=== PATIENT | female | born 1980 | race Caucasian/White ===

== ENCOUNTER 2017-01-31 08:07 | Emergency (ER) | payer BC ==
[2017-01-31 08:52] LABS: Hematocrit 37 % (35-47); Mean Corpuscular HGB Conc 33 g/dl (31-36); Mean Corpuscular Hemoglobin 25 pg (27-31); Mean Corpuscular Volume 77 fL (80-97); Mean Platelet Volume 8 um3 (7.4-10.4); Red Blood Count 4.74 10^6/ul (4.0-5.4); Red Cell Distribution Width 19 % (10.5-15); White Blood Count 11.5 10^3/ul (3.5-10.8)
[2017-01-31 08:58] LABS: Add Diff/Slide Review? Slide Review Added; Comments Flag Yes
[2017-01-31 09:04] LABS: ALT 12 U/L (7-52); AST 16 U/L (13-39); Albumin 4.4 g/dL (3.2-5.2); Alkaline Phosphatase 67 U/L (34-104); Anion Gap 5 mmol/L (2-11); BUN/Creatinine Ratio 11.4 (8-20); Blood Urea Nitrogen 8 mg/dL (6-24); C Reactive Protein 6.01 mg/L (< 5.00); CO2 Carbon Dioxide 24 mmol/L (22-32); Calcium 9.3 mg/dL (8.6-10.3); Chloride 106 mmol/L (101-111); EGFR African American 120.4 (>60); EGFR Non-African American 93.6 (>60); Globulin 2.9 g/dL (2-4); Glucose 97 mg/dL (70-100); Lipase 40 U/L (11.0-82.0); Potassium 3.7 mmol/L (3.5-5.0); Sodium 135 mmol/L (133-145); Total Protein 7.3 g/dL (6.4-8.9)
[2017-01-31 09:44] LABS: Urine Bacteria 1+ (Absent); Urine Bilirubin Negative (Negative); Urine Glucose Negative (Negative); Urine Nitrite Negative (Negative)
[2017-01-31] MEDS ORDERED: Iohexol 300* (CONTRAST) 10 ML SDV IV ONE (10:43)
--- NOTE | 2017-01-31 11:17 | RAD ---
INDICATION: Right lower quadrant abdominal pain. COMPARISON: Comparison is made with a prior pelvic ultrasound from June 08, 2015. TECHNIQUE: A CT scan of the abdomen and pelvis was performed with intravenous and oral contrast following intravenous injection of 121 ml of Omnipaque 300 nonionic contrast. Contiguous axial sections were obtained from the lung bases through the symphysis pubis. Images were reconstructed in the coronal and sagittal planes. FINDINGS: The lung bases are clear. No pleural effusion is present. The liver and spleen are normal in size. The liver is decreased in attenuation consistent with fatty infiltration. No significant focal hepatic abnormality is seen. No calcified gallstones are noted. The pancreas appears to be within normal limits. The kidneys and adrenal glands are normal in size. No hydronephrosis is seen. There is a small subcentimeter cyst present in the midportion of the left kidney. The aorta is normal in caliber and demonstrates homogeneous contrast opacification. No significant enlarged retroperitoneal lymph nodes are seen. The stomach, small and large bowel appear nondistended. The appendix is within normal limits. There is no evidence for diverticulitis or colitis. There is a small periumbilical hernia containing fat. The uterus is anteverted and normal in size. There is a small amount of free intraperitoneal fluid in the pelvis in the cul-de-sac region. No free intraperitoneal air is seen. No significant focal osseous abnormality is seen. IMPRESSION: SMALL AMOUNT OF FREE INTRAPERITONEAL FLUID IN THE PELVIS, OTHERWISE UNREMARKABLE STUDY.
[2017-01-31 12:23] VITALS: BP 126/66
--- NOTE | 2017-01-31 12:24 | RAD ---
Indication: RIGHT lower quadrant pain for approximate 6 hours. Comparison: January 31, 2017 CT. June 08, 2015 pelvic ultrasound. Technique: Transvaginal pelvic ultrasound. Report: 8.4 x 4.7 x 5.7 cm anteverted uterus with 11 mm endometrium. Nabothian cysts at the cervix. Small to moderate volume of grossly simple appearing free fluid in the cul-de-sac. 4.8 x 2.5 x 3.2 cm RIGHT ovary with documented vascular flow is remarkable for a 3.0 x 1.4 x 2.2 cm unilocular cyst with some inward directed concave margins devoid of intrinsic vascularity most consistent with an involuting follicular cyst. 2.6 x 1.8 x 1.7 cm LEFT ovary with documented vascular flow is remarkable for small follicles only. No visualized extra ovarian adnexal region lesions evident. IMPRESSION: 1. 3.0 cm maximum dimension RIGHT ovarian cyst most consistent with an involuting follicular cyst based on sonographic characteristics. 2. Small to moderate volume of grossly simple appearing free fluid in the cul-de-sac.
--- NOTE | 2017-02-02 21:22 | ED ---
Balaji Alonso Benjamin, scribed for Chiki Guillermo MD on 01/31/17 at 0901 . Abdominal Pain/Female - HPI Summary HPI Summary: 36yo female c/o sudden diffuse lower abdomen cramping pain this morning. Pt reports having some discomfort yesterday that felt like indigestion but woke up today with sudden pain. Pt reported slight back pain initially, but not now. Pt states that she is slightly nauseous and diaphoretic. Last BM was this morning, without any abnormalities. Denies feeling any lumps or bumps. No urinary symptoms. No abdominal surgeries in the past. Pt declines pain medication. - History of Current Complaint Chief Complaint: EDAbdPain Stated Complaint: ABD CRAMPING Time Seen by Provider: 01/31/17 08:29 Hx Obtained From: Patient Onset/Duration: Sudden Onset, Lasting Hours, Still Present Timing: Constant Severity Initially: Moderate Severity Currently: Moderate Pain Intensity: 7 Pain Scale Used: 0-10 Numeric Location: Diffuse - diffuse lower abdomen Radiates: Yes Radiates to: Back Character: Cramping Aggravating Factor(s): Nothing Alleviating Factor(s): Nothing Associated Signs and Symptoms: Positive: Diaphoresis, Back Pain, Nausea. Negative: Fever, Urinary Symptoms, Vaginal Discharge Allergies/Adverse Reactions: Allergies Allergy/AdvReac Type Severity Reaction Status Date / Time Clavulanic Acid Allergy Vomiting Verified 01/31/17 08:13 [From Augmentin] Sulfa Antibiotics Allergy Hives Verified 01/31/17 08:13 Home Medications: Home Medications Escitalopram (NF) [Lexapro 20 mg (NF)] 20 mg PO DAILY 01/31/17 [History Confirmed 01/31/17] PMH/Surg Hx/FS Hx/Imm Hx Endocrine/Hematology History: Denies: Hx Thyroid Disease Cardiovascular History: Denies: Hx Hypertension Psychiatric History: Reports: Hx Anxiety Infectious Disease History: No Infectious Disease History: Denies: Traveled Outside the [place] in Last 30 Days - Family History Known Family History: Positive: Hypertension, Diabetes, Other - [place] Negative: Cardiac Disease - Social History Occupation: Employed Full-time Lives: With Family Alcohol Use: Rare Substance Use Type: Reports: None Smoking Status (MU): Former Smoker Review of Systems Positive: Skin Diaphoresis. Negative: Fever Eyes: Negative ENT: Negative Cardiovascular: Negative Negative: Palpitations, Chest Pain Negative: Shortness Of Breath Positive: Abdominal Pain, Nausea Genitourinary: Negative Musculoskeletal: Negative Skin: Negative Neurological: Negative Psychological: Normal All Other Systems Reviewed And Are Negative: Yes Physical Exam Triage Information Reviewed: Yes Vital Signs On Initial Exam: Initial Vitals Temp Pulse Resp BP Pulse Ox 97.5 F 67 15 145/86 100 01/31/17 08:08 01/31/17 08:08 01/31/17 08:08 01/31/17 08:08 01/31/17 08:08 Vital Signs Reviewed: Yes Appearance: Positive: Well-Appearing, Well-Nourished, Pain Distress - mild Skin: Positive: Warm, Dry Head/Face: Positive: Normal Head/Face Inspection Eyes: Positive: EOMI, ANASTASIA, Conjunctiva Clear ENT: Positive: Hearing grossly normal Neck: Positive: Supple, Nontender. Negative: No Lymphadenopathy Respiratory/Lung Sounds: Positive: Clear to Auscultation, Breath Sounds Present. Negative: Rales, Rhonchi, Tracheal Deviation, Wheezes Cardiovascular: Positive: RRR, Pulses are Symmetrical in both Upper and Lower Extremities. Negative: Murmur, Leg Edema Left, Leg Edema Right Abdomen Description: Positive: Soft. Negative: Nontender - RLQ tenderness, Distended, Guarding Bowel Sounds: Positive: Present Pelvic Exam: Positive: tender adnexa, other - Pelvic Exam: Shirley (RN) and Cassandra ( RN) were present as female chaperones. Pelvic exam shows some tissue tearing of the cervix and adnexal tenderness. Musculoskeletal: Positive: Strength/ROM Intact. Negative: Edema Left, Edema Right Neurological: Positive: Alert, Oriented to Person Place, Time Psychiatric: Positive: Affect/Mood Appropriate Diagnostics - Vital Signs Vital Signs Temp Pulse Resp BP Pulse Ox 01/31/17 08:10 97.5 F 67 15 145/86 99 01/31/17 08:08 97.5 F 67 15 145/86 100 - Laboratory Lab Results: Lab Results 01/31/17 01/31/17 01/31/17 Range/Units 08:35 08:35 08:35 WBC 11.5 H (3.5-10.8) 10^3/ul RBC 4.74 (4.0-5.4) 10^6/ul Hgb 12.0 (12.0-16.0) g/dl Hct 37 (35-47) % MCV 77 L (80-97) fL MCH 25 L (27-31) pg MCHC 33 (31-36) g/dl RDW 19 H (10.5-15) % Plt Count 508 H (150-450) 10^3/ul MPV 8 (7.4-10.4) um3 Neut % (Auto) 74.5 (38-83) % Lymph % (Auto) 12.5 L (25-47) % [place] % (Auto) 8.4 (1-9) % Eos % (Auto) 2.2 (0-6) % Baso % (Auto) 2.4 H (0-2) % Absolute Neuts (auto) 8.6 H (1.5-7.7) 10^3/ul Absolute Lymphs (auto) 1.4 (1.0-4.8) 10^3/ul Absolute Monos (auto) 1.0 H (0-0.8) 10^3/ul Absolute Eos (auto) 0.3 (0-0.6) 10^3/ul Absolute Basos (auto) 0.3 H (0-0.2) 10^3/ul Absolute Nucleated RBC 0 10^3/ul Nucleated RBC % 0 Sodium 135 (133-145) mmol/L Potassium 3.7 (3.5-5.0) mmol/L Chloride 106 (101-111) mmol/L Carbon Dioxide 24 (22-32) mmol/L Anion Gap 5 (2-11) mmol/L BUN 8 (6-24) mg/dL Creatinine 0.70 (0.51-0.95) mg/dL Est GFR ( Amer) 120.4 (>60) Est GFR (Non-Af Amer) 93.6 (>60) BUN/Creatinine Ratio 11.4 (8-20) Glucose 97 (70-100) mg/dL Lactic Acid 0.9 (0.5-2.0) mmol/L Calcium 9.3 (8.6-10.3) mg/dL Total Bilirubin 0.40 (0.2-1.0) mg/dL AST 16 (13-39) U/L ALT 12 (7-52) U/L Alkaline Phosphatase 67 (34-104) U/L C-Reactive Protein 6.01 H (< 5.00) mg/L Total Protein 7.3 (6.4-8.9) g/dL Albumin 4.4 (3.2-5.2) g/dL Globulin 2.9 (2-4) g/dL Albumin/Globulin Ratio 1.5 (1-3) Lipase 40 (11.0-82.0) U/L Beta HCG, Quant < 0.60 mIU/mL Urine Color Urine Appearance Urine pH (5-9) Ur Specific [place] (1.010-1.030) Urine Protein (Negative) Urine Ketones (Negative) Urine Blood (Negative) Urine Nitrate (Negative) Urine Bilirubin (Negative) Urine Urobilinogen (Negative) Ur Leukocyte Esterase (Negative) Urine WBC (Auto) (Absent) Urine RBC (Auto) (Absent) Ur Squamous Epith Cells (Absent) Urine Bacteria (Absent) Urine Glucose (Negative) C.trachomatis (Amp Det) (Negative) N.gonorrhoeae (Amp Det) (Negative) T.vaginalis (Amp Det) (Negative) 01/31/17 01/31/17 Range/Units 08:55 12:39 WBC (3.5-10.8) 10^3/ul RBC (4.0-5.4) 10^6/ul Hgb (12.0-16.0) g/dl Hct (35-47) % MCV (80-97) fL MCH (27-31) pg MCHC (31-36) g/dl RDW (10.5-15) % Plt Count (150-450) 10^3/ul MPV (7.4-10.4) um3 Neut % (Auto) (38-83) % Lymph % (Auto) (25-47) % [place] % (Auto) (1-9) % Eos % (Auto) (0-6) % Baso % (Auto) (0-2) % Absolute Neuts (auto) (1.5-7.7) 10^3/ul Absolute Lymphs (auto) (1.0-4.8) 10^3/ul Absolute Monos (auto) (0-0.8) 10^3/ul Absolute Eos (auto) (0-0.6) 10^3/ul Absolute Basos (auto) (0-0.2) 10^3/ul Absolute Nucleated RBC 10^3/ul Nucleated RBC % Sodium (133-145) mmol/L Potassium (3.5-5.0) mmol/L Chloride (101-111) mmol/L Carbon Dioxide (22-32) mmol/L Anion Gap (2-11) mmol/L BUN (6-24) mg/dL Creatinine (0.51-0.95) mg/dL Est GFR ( Amer) (>60) Est GFR (Non-Af Amer) (>60) BUN/Creatinine Ratio (8-20) Glucose (70-100) mg/dL Lactic Acid (0.5-2.0) mmol/L Calcium (8.6-10.3) mg/dL Total Bilirubin (0.2-1.0) mg/dL AST (13-39) U/L ALT (7-52) U/L Alkaline Phosphatase (34-104) U/L C-Reactive Protein (< 5.00) mg/L Total Protein (6.4-8.9) g/dL Albumin (3.2-5.2) g/dL Globulin (2-4) g/dL Albumin/Globulin Ratio (1-3) Lipase (11.0-82.0) U/L Beta HCG, Quant mIU/mL Urine Color Yellow Urine Appearance Cloudy Urine pH 5.0 (5-9) Ur Specific [place] 1.025 (1.010-1.030) Urine Protein Negative (Negative) Urine Ketones Negative (Negative) Urine Blood 3+ H (Negative) Urine Nitrate Negative (Negative) Urine Bilirubin Negative (Negative) Urine Urobilinogen Negative (Negative) Ur Leukocyte Esterase Trace H (Negative) Urine WBC (Auto) Trace(0-5/hpf) (Absent) Urine RBC (Auto) 3+(>10/hpf) H (Absent) Ur Squamous Epith Cells Present H (Absent) Urine Bacteria 1+ H (Absent) Urine Glucose Negative (Negative) C.trachomatis (Amp Det) Negative (Negative) N.gonorrhoeae (Amp Det) Negative (Negative) T.vaginalis (Amp Det) Negative (Negative) Result Diagrams: 01/31/17 08:35 01/31/17 08:35 Lab Statement: Any lab studies that have been ordered have been reviewed, and results considered in the medical decision making process. - CT CTW A/P CT Interpretation: No Acute Changes - IMPRESSION: SMALL AMOUNT OF FREE INTRAPERITONEAL FLUID IN THE PELVIS, OTHERWISE UNREMARKABLE STUDY. CT Interpretation Completed By: Radiologist - ED physician has reviewed this radiology report and agrees. Re-Evaluation - Re-Evaluation First Eval Re-Evaluation Time: 11:42 Change: Improved - Pt states that the pain has improved. Pt however still has some RLQ tenderness. She is getting ready for a pelvic US. Her CT image was normal. Second Eval Re-Evaluation Time: 12:47 Comment: Pelvic Exam: Shirley (RN) and Cassandra (RN) were present as female chaperones. Pelvic exam shows some tissue tearing of the cervix and adnexal tenderness. We will recommend outpt follow up with OBGYN. Abdominal Pain Fem Course/Dx - Course Course Of Treatment: Reviewed pts medication and allergy lists. High blood pressure noted. - Diagnoses Provider Diagnoses: Right ovarian cyst Discharge - Discharge Plan Condition: Stable Disposition: HOME Patient Education Materials: Incompetent Cervix (ED), Ovarian Cyst (ED) Referrals: Yesica Benjamin MD [Primary Care Provider] - The documentation as recorded by the Balaji piedra Benjamin accurately reflects the service I personally performed and the decisions made by Eagle thayer Jerry, MD.
== END 2017-01-31 13:11 | disposition home or self-care (01) ==
LOC: ED 08:07
DX: N83.201 Unspecified ovarian cyst, right side (principal); Z87.891 Personal history of nicotine dependence; F41.9 Anxiety disorder, unspecified
CPT/HCPCS: 36415; 74177; 76830; 80053; 81003; 81015; 83605; 83690; 84702; 85025; 86140; 87086; 87480; 87491; 87510; 87591; 87661; 99282; Q9967